=== PATIENT | male | born 1990 | race Asian ===

== ENCOUNTER 2017-05-22 04:56 | Emergency (ER) | payer OTHER ==
[~2017-05-22] VITALS: Ht 170.2 cm; Wt 90.0 kg
[2017-05-22 05:00] VITALS: BP 143/89
[2017-05-22] MEDS ORDERED: OMEP20CA14 PO (05:20)
[2017-05-22] MEDS ORDERED: KETOROLAC 30 MG/1 ML IM ONE (05:30)
[2017-05-22] MEDS ORDERED: KETOROLAC 30 MG/1 ML ONE (05:36)
== END 2017-05-22 06:34 | disposition home or self-care (01) ==
LOC: ED 06:17
DX: S39.012A Strain of muscle, fascia and tendon of lower back, initial encounter (principal); K21.9 Gastro-esophageal reflux disease without esophagitis; V43.52XA Car driver injured in collision with other type car in traffic accident, initial encounter; Y93.I9 Activity, other involving external motion; Y92.410 Unspecified street and highway as the place of occurrence of the external cause; Y99.8 Other external cause status
CPT/HCPCS: 72110; 96372; 99284; J1885

== ENCOUNTER 2018-12-08 10:40 | Outpatient (CLI) | payer OTHER ==
[~2018-12-08 10:40] MED LIST: OMEP20CA14 PO
== END 2018-12-08 23:59 | disposition home or self-care (01) ==
LOC: LAB 10:40 → RAD 23:59
PROVIDERS: ATTEND Internal Medicine Hematology & Oncology
DX: S33.9XXA Sprain of unspecified parts of lumbar spine and pelvis, initial encounter (principal); M43.8X6 Other specified deforming dorsopathies, lumbar region; X58.XXXA Exposure to other specified factors, initial encounter; Y93.89 Activity, other specified; Y92.89 Other specified places as the place of occurrence of the external cause; Y99.8 Other external cause status
CPT/HCPCS: 72110

== ENCOUNTER → 2019-06-02 | Outpatient (CLI) | payer OTHER ==
[2019-06-02 07:36] LABS: ALBUMIN 3.7 g/dL (3.4-5.0); ANION GAP 7 mmol/L (5-15); CALCIUM 8.7 mg/dL (8.5-10.1); CHLORIDE 111 mmol/L (98-107)
[2019-06-02 07:40] LABS: ALANINE AMINOTRANSFERASE 55 U/L (12-78); ALKALINE PHOSPHATASE 78 U/L (45-117); BILIRUBIN,TOTAL 0.8 mg/dL (0.2-1.0); CHOL/HDL RATIO 5.9; CHOLESTEROL, TOTAL 199 mg/dL (140-239); CREATININE 1.06 mg/dL (0.7-1.3); HDL CHOL % 17 % (26-37); HDL CHOLESTEROL (DIRECT) 34 mg/dL (40-60); LDL CHOLESTEROL,CALCULATED 139 mg/dL (54-169); LDL/HDL RATIO 4.1 (0.5-3.0); TOTAL PROTEIN 7.7 g/dL (6.4-8.2); TRIGLYCERIDES 129 mg/dL (50-200); VLDL CHOLESTEROL 26 mg/dL (0-25)
== END | disposition home or self-care (01) ==
LOC: LAB 07:13
PROVIDERS: ATTEND Nurse Practitioner Family
DX: S39.012A Strain of muscle, fascia and tendon of lower back, initial encounter (principal); E78.5 Hyperlipidemia, unspecified; R73.9 Hyperglycemia, unspecified; R94.5 Abnormal results of liver function studies; X58.XXXA Exposure to other specified factors, initial encounter; Y93.89 Activity, other specified; Y92.89 Other specified places as the place of occurrence of the external cause; Y99.8 Other external cause status
CPT/HCPCS: 36415; 80053; 80061; 83036

== ENCOUNTER 2019-06-06 07:29 | Outpatient (CLI) | payer OTHER ==
[~2019-06-06 07:29] MED LIST changes: -OMEP20CA14 PO; +OMEP20CA20 PO
== END 2019-06-06 23:59 | disposition home or self-care (01) ==
LOC: CFH 07:29
PROVIDERS: ATTEND Nurse Practitioner Family
DX: K82.4 Cholesterolosis of gallbladder (principal); K76.89 Other specified diseases of liver
CPT/HCPCS: 76705

== ENCOUNTER → 2019-06-20 | Outpatient (CLI) | payer OTHER ==
[~2019-06-20] MED LIST changes: +OMEP20CA14 PO; -OMEP20CA20 PO
== END | disposition home or self-care (01) ==
LOC: RAD 08:35
PROVIDERS: ATTEND Nurse Practitioner Family
DX: M54.16 Radiculopathy, lumbar region (principal)
CPT/HCPCS: 72148